=== PATIENT | male | born 1955 | race Caucasian/White ===

== ENCOUNTER 2017-01-15 14:01 | Emergency (ER) | payer MEDICAID ==
[2017-01-15 14:51] VITALS: RESP 18; TEMP 98.2; BMI 26.9
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
[2017-01-15 17:15] VITALS: BP 128/74; PULSE 85; O2SAT 100
--- NOTE | 2017-01-16 09:45 | RAD ---
PROCEDURE: Radiographs of the Left Shoulder HISTORY: Left shoulder injury and pain COMPARISON: No prior. FINDINGS: BONES: There is no acute fracture or bone destruction. Bone mineralization alignment and alignment are normal. JOINTS: The heart there is mild degenerative osteoarthrosis in the acromioclavicular joint. The glenohumeral joint is normal. SOFT TISSUES: Normal. OTHER FINDINGS: There is a calcified lobe the in the left axilla. IMPRESSION: No acute fracture or dislocation.
== END 2017-01-15 16:45 | disposition home or self-care (01) ==
LOC: ED 14:01
DX: S49.92XA Unspecified injury of left shoulder and upper arm, initial encounter (principal); Y08.89XA Assault by other specified means, initial encounter; Y92.9 Unspecified place or not applicable

== ENCOUNTER 2018-06-05 22:30 | Observation (INO) | payer MEDICAID ==
--- NOTE | 2018-06-05 23:09 | ED PDOC ---
Arrival/HPI - General Time Seen by Provider: 06/05/18 22:57 Historian: Patient - History of Present Illness Narrative History of Present Illness (Text): 06/05/18 23:08 Ondina Baldwin is a 62 year old male, whose past medical history includes hyperlipidemia, who presents to the emergency department complaining of dry cough and nasal congestion for the past few days. Patient denies any fever, chills, chest pain, shortness of breath, abdominal pain, nausea, vomiting, headache, dizziness, or any other complaints. Symptom Onset: Gradual Symptom Course: Unchanged Activities at Onset: Light Context: Home Past Medical History - Provider Review Nursing Documentation Reviewed: Yes - Cardiac Hx Cardiac Disorders: Yes - Psychiatric Hx Substance Use: No - Surgical History Other/Comment: sinus surgery - Anesthesia Hx Anesthesia: Yes Hx Anesthesia Reactions: No Hx Malignant Hyperthermia: No Family/Social History - Physician Review Nursing Documentation Reviewed: Yes Family/Social History: Unknown Family HX Smoking Status: Heavy Smoker > 10 Cigarettes Daily Hx Alcohol Use: No Hx Substance Use: No Allergies/Home Meds Allergies/Adverse Reactions: Allergies No Known Allergies Allergy (Verified 06/05/18 23:11) Home Medications: Home Meds Medication Instructions Recorded Confirmed Atorvastatin [Lipitor] 10 mg PO DIN 01/15/17 06/06/18 Review of Systems - Physician Review All systems were reviewed & negative as marked: Yes - Review of Systems Constitutional: Normal. absent: Fevers Eyes: Normal ENT: Normal, Sinus Congestion Respiratory: Cough. absent: Sputum Cardiovascular: Normal. absent: Chest Pain Gastrointestinal: Normal. absent: Abdominal Pain, Diarrhea, Nausea, Vomiting Genitourinary Male: Normal. absent: Dysuria, Frequency, Hematuria, Urinary Output Changes Musculoskeletal: Normal. absent: Back Pain, Neck Pain Skin: Normal. absent: Rash Neurological: Normal. absent: Headache, Dizziness Endocrine: Normal Hemo/Lymphatic: Normal Psychiatric: Normal Physical Exam Vital Signs Reviewed: Yes Vital Signs Temp Pulse Resp BP Pulse Ox 06/06/18 02:39 98.1 F 86 16 116/71 96 06/06/18 02:33 102.6 F H 06/06/18 01:00 98 H 20 120/70 96 06/05/18 23:24 103 F H 106 H 18 95/66 L 95 Temperature: Febrile Blood Pressure: Normal Pulse: Regular Respiratory Rate: Normal Appearance: Positive for: Well-Appearing, Non-Toxic, Comfortable Pain Distress: None Mental Status: Positive for: Alert and Oriented X 3 - Systems Exam Head: Present: Atraumatic, Normocephalic Pupils: Present: PERRL Extroacular Muscles: Present: EOMI Conjunctiva: Present: Normal Mouth: Present: Moist Mucous Membranes Neck: Present: Normal Range of Motion Respiratory/Chest: Present: Wheezes. No: Respiratory Distress, Accessory Muscle Use Cardiovascular: Present: Regular Rate and Rhythm, Normal S1, S2. No: Murmurs Abdomen: No: Tenderness, Distention, Peritoneal Signs Back: Present: Normal Inspection. No: CVA Tenderness, Midline Tenderness, Paraspinal Tenderness Upper Extremity: Present: Normal Inspection. No: Cyanosis, Edema Lower Extremity: Present: Normal Inspection. No: Edema Neurological: Present: GCS=15, CN II-XII Intact, Speech Normal Skin: Present: Warm, Dry, Normal Color. No: Rashes Psychiatric: Present: Alert, Oriented x 3, Normal Insight, Normal Concentration Medical Decision Making ED Course and Treatment: 06/05/18 23:08 Impression: 62 year old male complaining of dry cough and nasal congestion. Plan: -- Chest X-Ray -- Duoneb -- Solu-medrol -- Reassess and disposition Progress Notes: 06/05/18 23:35 Pt febrile at 103F. EKG, labs, blood cultures ordered. 06/06/18 02:00 Chest X-Ray reviewed, shows bilateral pneumonia. 06/06/18 02:33 Case discussed with medical assistant supervisor electrician substation, who is aware and agrees with plan. 06/06/18 02:[address] Talbert, house physician, who is aware and agrees with plan. Pt will go to [facility] observation for pneumonia under the hospitalist service. - Lab Interpretations Lab Results: 06/05/18 23:30 06/05/18 23:30 Lab Results 06/05/18 23:30: Sodium 136, Potassium 4.1, Chloride 102, Carbon Dioxide 21, Anion Gap 17, BUN 20, Creatinine 1.2, Est GFR ( Amer) > 60, Est GFR (Non- Af Amer) > 60, Random Glucose 110, Calcium 8.8, Total Bilirubin 1.6 H, AST 17, ALT 25, Alkaline Phosphatase 59, Total Protein 7.3, Albumin 4.1, Globulin 3.1, Albumin/Globulin Ratio 1.3 06/05/18 23:30: WBC 12.3 H, RBC 4.40, Hgb 13.1 L, Hct 37.2 L, MCV 84.5, MCH 29.8 , MCHC 35.2, RDW 13.3, Plt Count 227, MPV 9.6, Gran % 72.6 H, Lymph % (Auto) 17.6 L, Karnes % (Auto) 9.2 H, Eos % (Auto) 0.4 L, Baso % (Auto) 0.2, Gran # 8.95 H, Lymph # (Auto) 2.2, Karnes # (Auto) 1.1 H, Eos # (Auto) 0.1, Baso # (Auto) 0.03 - RAD Interpretation Radiology Orders: 06/05/18 23:11 CHEST TWO VIEWS (PA/LAT) [RAD] Stat Treasury Assistant: ED Physician - Medication Orders Current Medication Orders: Acetaminophen (Tylenol 325mg Tab) 650 mg PO Q6H PRN PRN Reason: Fever >100.4 F Albuterol/Ipratropium (Duoneb 3 Mg/0.5 Mg (3 Ml) Ud) 3 ml IH [id number] PRN PRN Reason: Shortness of Breath Arformoterol Tartrate (Brovana) 15 mcg IH [id number] JANICE Atorvastatin Calcium (Lipitor) 10 mg PO DIN JANICE Budesonide (Pulmicort Respules) 0.5 mg IH [id number] JANICE Sodium Chloride (Sodium Chloride 0.9%) 1,000 mls @ 100 mls/hr IV .Q10H JANICE Last Admin: 06/06/18 03:45 Dose: 100 mls/hr eMAR Start Stop Document 06/06/18 03:45 MV (Rec: 06/06/18 06:23 MV [id number]) Intravenous Solution Start Date 06/06/18 Start Time 03:45 Ceftriaxone Sodium (Rocephin 1 Gram Ivpb) 1 gm in 100 mls @ 100 mls/hr IVPB DAILY JANICE PRN Reason: Protocol Azithromycin (Zithromax 500mg In Ns) 500 mg in 250 mls @ 167 mls/hr IVPB DAILY JANICE PRN Reason: Protocol Pantoprazole Sodium (Protonix Ec Tab) 40 mg PO 0600 JANICE Last Admin: 06/06/18 06:22 Dose: 40 mg Tamsulosin HCl (Flomax) 0.4 mg PO DAILY JANICE Discontinued Medications Acetaminophen (Tylenol 325mg Tab) 650 mg PO STAT STA Stop: 06/06/18 01:15 Last Admin: 06/06/18 02:33 Dose: 650 mg MAR Pain/Vitals Document 06/06/18 02:33 RG (Rec: 06/06/18 02:34 [place] [facility] [id number] Vitals Temperature (97.6 F-99.6 F) 102.6 F Temperature Source Oral Albuterol/Ipratropium (Duoneb 3 Mg/0.5 Mg (3 Ml) Ud) 3 ml IH Q15M JANICE Stop: 06/05/18 23:46 Last Admin: 06/05/18 23:54 Dose: 3 ml Ceftriaxone Sodium (Rocephin 1 Gram Ivpb) 1 gm in 100 mls @ 200 mls/hr IVPB STAT STA PRN Reason: Protocol Stop: 06/06/18 02:43 Last Admin: 06/06/18 02:33 Dose: 200 mls/hr eMAR Start Stop Document 06/06/18 02:33 RG (Rec: 06/06/18 02:33 RG [facility] [id number] Intravenous Solution Start Date 06/06/18 Start Time 02:33 Azithromycin (Zithromax 500mg In Ns) 500 mg in 250 mls @ 167 mls/hr IVPB STAT STA PRN Reason: Protocol Stop: 06/06/18 03:45 Last Admin: 06/06/18 03:00 Dose: 167 mls/hr eMAR Start Stop Document 06/06/18 03:00 RG (Rec: 06/06/18 03:13 RG [facility] [id number] Intravenous Solution Start Date 06/06/18 Start Time 03:00 Sodium Chloride (Sodium Chloride 0.9%) 500 mls @ 999 mls/hr IV .Q31M STA Stop: 06/06/18 03:53 Last Admin: 06/06/18 04:14 Dose: 999 mls/hr eMAR Start Stop Document 06/06/18 04:14 MV (Rec: 06/06/18 04:15 MV [facility] [id number] Intravenous Solution Start Date 06/06/18 Start Time 04:14 End Date 06/06/18 End time 04:44 Total Infusion Time 30 Methylprednisolone (Solu-Medrol) 125 mg IVP ONCE ONE Stop: 06/05/18 23:12 Last Admin: 06/05/18 23:34 Dose: 125 mg IVP Administration Document 06/05/18 23:34 CLARITZA (Rec: 06/05/18 23:41 [id number]) Charges for Administration # of IVP Administrations 1 - Scribe Statement The provider has reviewed the documentation as recorded by the Tristan Parrish Provider Scribe Attestation: All medical record entries made by the Tristan were at my direction and personally dictated by me. I have reviewed the chart and agree that the record accurately reflects my personal performance of the history, physical exam, medical decision making, and the department course for this patient. I have also personally directed, reviewed, and agree with the discharge instructions and disposition. Disposition/Present on Arrival - Present on Arrival Any Indicators Present on Arrival: No History of DVT/PE: No History of Uncontrolled Diabetes: No Urinary Catheter: No History Surgical Site Infection Following: None - Disposition Have Diagnosis and Disposition been Completed?: Yes Diagnosis: Pneumonia, COPD (chronic obstructive pulmonary disease) Disposition: HOSPITALIZED Disposition Time: 02:30 Condition: FAIR
[2018-06-05 23:11] VITALS: BMI 25.0
[2018-06-05] MEDS: Albuterol-Ipratrop 3 mg / 0.5 (3 ml) UD IH SCH ×3 (23:18→23:54)
[2018-06-06 00:02] LABS: BASO # 0.03 K/mm3 (0.0-2.0); BASO % 0.2 % (0.0-3.0); EOS # 0.1 (0.0-0.7); EOS % 0.4 % (1.5-5.0); GRAN # 8.95 (1.4-6.5); GRAN % 72.6 % (50.0-68.0); HEMOGLOBIN 13.1 g/dL (14.0-18.0); LYMPH # 2.2 (1.2-3.4); LYMPH % 17.6 % (22.0-35.0); MEAN CELL VOLUME 84.5 fl (80.0-105.0); MEAN CORPUSCULAR HEMOGLOBIN 29.8 pg (25.0-35.0); MEAN CORPUSCULAR HGB CONC 35.2 g/dl (31.0-37.0); MEAN PLATELET VOLUME 9.6 fl (7.0-11.0); MONO # 1.1 (0.1-0.6); MONO % 9.2 % (1.0-6.0); RBC 4.4 10^6/uL (3.5-6.1); RED CELL DISTRIBUTION WIDTH 13.3 % (11.5-14.5); WHITE BLOOD COUNT 12.3 10^3/ul (4.5-11.0)
[2018-06-06 00:12] LABS: ALB/GLOB RATIO 1.3 (1.1-1.8); ALBUMIN 4.1 g/dL (3.0-4.8); ALT/SGPT 25 U/L (7-56); AST/SGOT 17 U/L (17-59); BLOOD UREA NITROGEN 20 mg/dL (7-21); CALCIUM 8.8 mg/dL (8.4-10.5); GFR NON-AFRICAN AMERICAN > 60
[2018-06-06] MEDS ORDERED: cefTRIAXone 1 gm 1 GM/100 ML BAG IVPB STA (02:14)
[2018-06-06] MEDS ORDERED: Azithromycin 500MG/NS 250ml 500 MG/250 ML BAG IVPB STA (02:16)
--- NOTE | 2018-06-06 03:06 | CP.PCM.HP ---
<Aisha Montgomery - Last Filed: 06/06/18 03:53> History of Present Illness - History of Present Illness History of Present Illness: PGY-1 H&P for Dr. Talbert CC: weak, no appetite, cough, difficulty breathing, sweating HPI: Patient is a 62 yo male with PMH of BPH, asthma, and CAD who presents to the hospital for evaluation of generalized weakness, fever, cough, diaphoresis, and shortness of breath. Patient reports the symptoms began this Sunday but progressed in severity to the point where we had difficulty catching his breath and excessive sweating. He has been having a cough but states it is non productive. He says he was taking 3-4 Ibuprofens daily since Sunday for his symptoms but was not offered much relief. The breathing became so difficult yesterday that patient felt like he could not catch his breath. During work today, symptoms continued but he waited until he was done with work to come to the hospital. He reports that he had 3 episodes of these symptoms earlier this year but went to his doctor who prescribed antibiotics, levofloxacin. Patient reports no sick contacts at home. 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 Justino Hare Review of Systems: Pertinent Positives: fevers, chills, generalized weakness, sob, diaphoresis, lightheadedness, non productive cough, headache, decreased appetite Pertinent Negatives: CP, N/V, constipation or diarrhea, dizziness, palpitations , Present on Admission - Present on Admission Any Indicators Present on Admission: No Review of Systems - Constitutional Constitutional: Chills, Excessive Sweating, Fever, Headache, Weakness. absent: Increased Appetite - EENT Eyes: absent: Blind Spots, Blurred Vision, Change in Vision Ears: absent: Dizziness Nose/Mouth/Throat: absent: Sore Throat - Cardiovascular Cardiovascular: Diaphoresis, Dyspnea, Lightheadedness. absent: Chest Pain, Chest Pain at Rest, Palpitations - Respiratory Respiratory: Cough, Pain with Coughing. absent: Dyspnea, Wheezing, Excessive Mucous Production - Gastrointestinal Gastrointestinal: absent: Abdominal Pain, Constipation, Diarrhea, Nausea, Vomiting - Genitourinary Genitourinary: Difficulty Urinating. absent: Change in Urinary Stream, Dysuria - Musculoskeletal Musculoskeletal: absent: Back Pain, Numbness, Tingling - Neurological Neurological: Headaches, Weakness. absent: Dizziness, Numbness, Tingling Past Patient History - Infectious Disease Hx of Infectious Diseases: None - Past Social History Smoking Status: Heavy Smoker > 10 Cigarettes Daily - CARDIAC Hx Cardiac Disorders: Yes - PSYCHIATRIC Hx Substance Use: No - SURGICAL HISTORY Other/Comment: sinus surgery - ANESTHESIA Hx Anesthesia: Yes Hx Anesthesia Reactions: No Hx Malignant Hyperthermia: No Meds Allergies/Adverse Reactions: Allergies Allergy/AdvReac Type Severity Reaction Status Date / Time No Known Allergies Allergy Verified 06/05/18 23:11 Physical Exam - Constitutional Appears: Non-toxic, No Acute Distress - Head Exam Head Exam: NORMAL INSPECTION, NORMOCEPHALIC - Eye Exam Eye Exam: EOMI, Normal appearance. absent: Nystagmus, Scleral icterus - ENT Exam ENT Exam: Mucous Membranes Dry - Respiratory Exam Respiratory Exam: Rhonchi, Wheezes, NORMAL BREATHING PATTERN. absent: Accessory Muscle Use, Respiratory Distress - Cardiovascular Exam Cardiovascular Exam: REGULAR RHYTHM, +S1, +S2 - GI/Abdominal Exam GI & Abdominal Exam: Normal Bowel Sounds, Soft. absent: Distended, Firm, Guarding, Tenderness - Extremities Exam Extremities exam: Positive for: normal inspection. Negative for: calf tenderness, pedal edema - Back Exam Back exam: NORMAL INSPECTION. absent: CVA tenderness (L), CVA tenderness (R) - Neurological Exam Neurological exam: Alert, Oriented x3 - Psychiatric Exam Psychiatric exam: Normal Affect, Normal Mood - Skin Skin Exam: Diaphoretic, Intact, Normal Color Results - Vital Signs Recent Vital Signs: Last Vital Signs Temp 98.1 F 06/06/18 02:39 Pulse 86 06/06/18 02:39 Resp 16 06/06/18 02:39 BP 116/71 06/06/18 02:39 Pulse Ox 96 06/06/18 02:39 - Labs Result Diagrams: 06/05/18 23:30 06/05/18 23:30 Assessment & Plan - Assessment and Plan (Free Text) Assessment: Sepsis Upon Admission: VS- T 103; HR 106; BP 95/66; WBC 12.3 Likely secondary to pneumonia NS bolus 500cc IVF @ 100/hr Ceftriaxone IVPB 1gm Azithromycin IVPB 500mg Tylenol 650mg po Q6 prn Blood cultures pending Sputum Cultures pending EKG in AM Repeat CBC/CMP in AM Hx of Asthma Duonebs q6 prn Advair Diskus 250/50 bid azar Hx of BPH Flomax 0.4mg po daily U/A pending Hx of CAD Lipitor 10mg po daily PPX: GI PPX: Protonix 40mg po daily DVT PPX: Not indicated at this time <Joel Talbert - Last Filed: 06/06/18 05:12> Results - Vital Signs Recent Vital Signs: Last Vital Signs Temp 98.0 F 06/06/18 03:38 Pulse 76 06/06/18 03:38 Resp 18 06/06/18 03:38 BP 113/72 06/06/18 03:38 Pulse Ox 96 06/06/18 02:39 - Labs Result Diagrams: 06/05/18 23:30 06/05/18 23:30 Attending/Attestation - Attestation I have personally seen and examined this patient.: Yes I have fully participated in the care of the patient.: Yes I have reviewed all pertinent clinical information: Yes Notes (Text): Pt seen and examined independently. I agree with the residents note above. Sepsis secondary to CAP CAD BPH Send tom culture, start pt on Zithromax and rocephin Statins Flomax 06/06/18 05:06 06/06/18 05:10
[2018-06-06] MEDS ORDERED: Sodium Chloride 0.9% 500 ML IV STA (03:23)
[2018-06-06] MEDS: Sodium Chloride 0.9% 1,000 ML IV SCH ×3 (03:45→23:30)
[2018-06-06] MEDS ORDERED: Albuterol-Ipratrop 3 mg / 0.5 (3 ml) UD IH PRN ×2 (03:48→10:18)
[2018-06-06] MEDS: Pantoprazole 40 mg EC Tab PO SCH (06:22)
[2018-06-06 06:46] LABS: BASO # 0.01 K/mm3 (0.0-2.0); BASO % 0.1 % (0.0-3.0); GRAN # 8.95 (1.4-6.5); GRAN % 87.1 % (50.0-68.0); HEMOGLOBIN 12.5 g/dL (14.0-18.0); LYMPH # 1.1 (1.2-3.4); MEAN CELL VOLUME 84.6 fl (80.0-105.0); MEAN CORPUSCULAR HEMOGLOBIN 28.8 pg (25.0-35.0); MEAN CORPUSCULAR HGB CONC 34.1 g/dl (31.0-37.0); MEAN PLATELET VOLUME 9.5 fl (7.0-11.0); MONO # 0.2 (0.1-0.6); MONO % 1.8 % (1.0-6.0); RBC 4.34 10^6/uL (3.5-6.1); RED CELL DISTRIBUTION WIDTH 13.4 % (11.5-14.5); WHITE BLOOD COUNT 10.3 10^3/ul (4.5-11.0)
[2018-06-06 07:32] LABS: ALB/GLOB RATIO 1.3 (1.1-1.8); ALBUMIN 3.8 g/dL (3.0-4.8); ALT/SGPT 25 U/L (7-56); AST/SGOT 16 U/L (17-59); BLOOD UREA NITROGEN 19 mg/dL (7-21); CALCIUM 8.4 mg/dL (8.4-10.5); GFR NON-AFRICAN AMERICAN > 60
[2018-06-06 07:34] LABS: URINE BILIRUBIN NEGATIVE (NEGATIVE); URINE BLOOD SMALL (NEGATIVE); URINE GLUCOSE (UA) NEGATIVE (NEGATIVE); URINE LEUKOCYTE ESTERASE NEGATIVE Leu/uL (NEGATIVE); URINE PROTEIN NEGATIVE mg/dL (<30 mg/dL)
[2018-06-06 07:35] LABS: URINE APPEARANCE CLEAR (CLEAR); URINE COLOR YELLOW (YELLOW)
[2018-06-06 07:55] LABS: URINE BACTERIA MOD (NEG); URINE WBC 0 - 2 /hpf (0-6)
[2018-06-06] MEDS ORDERED: Budesonide 0.5 mg/2 ml Inhal Susp UD IH SCH (08:00)
[2018-06-06] MEDS ORDERED: Arformoterol 15 mcg/2 ml Inh Sol IH SCH (08:00)
--- NOTE | 2018-06-06 08:50 | RAD ---
Date of service: 06/06/2018 HISTORY: sob COMPARISON: No prior. TECHNIQUE: Chest PA and lateral FINDINGS: LUNGS: No active pulmonary disease. PLEURA: No significant pleural effusion identified. No pneumothorax apparent. CARDIOVASCULAR: Normal. OSSEOUS STRUCTURES: No significant abnormalities. VISUALIZED UPPER ABDOMEN: Normal. OTHER FINDINGS: Incidental left axillary calcification reiterated. IMPRESSION: No interval acute cardiopulmonary disease appreciated.
--- NOTE | 2018-06-06 09:59 | CARD ---
APPROVED REPORT Date of service: 06/05/2018 EKG Measurement Heart [id number] <Conclusion> Sinus tachycardia NSSTW changes
[2018-06-06] MEDS: Enoxaparin 40 mg Syringe SC SCH (11:07)
[2018-06-06] MEDS: MethylPREDNISolone 40 mg Vial IVP SCH ×2 (11:07→21:58)
[2018-06-06] MEDS ORDERED: Promethazine 6.25 MG/5 ML CUP PO PRN (11:28)
[2018-06-06] MEDS: Albuterol-Ipratrop 3 mg / 0.5 (3 ml) UD IH SCH ×4 (11:45→23:11)
[2018-06-06] MEDS ORDERED: Iohexol 350 MG/100 ML VIAL ONE (12:17)
[2018-06-06] MEDS: guaiFENesin 600 mg ER Tab PO SCH ×2 (13:07→17:49)
--- NOTE | 2018-06-06 14:03 | CT ---
Date of service: 06/06/2018 PROCEDURE: CT Chest with contrast HISTORY: r/o pna COMPARISON: None available. TECHNIQUE: Contiguous axial images were obtained through the chest with intravenous contrast enhancement. Sagittal and coronal reconstructions were performed. IV contrast: 100 cc of Omni 350 Radiation dose (DLP): 790 mGy-cm. This CT exam was performed using one or more of the following dose reduction techniques: Automated exposure control, adjustment of the mA and/or kV according to patient size, and/or use of iterative reconstruction technique. FINDINGS: LUNGS: Ground-glass interstitial infiltrates are seen in the lingular segment of the left lung and a small area of the right upper lobe. Findings are consistent with an interstitial pneumonia. MEDIASTINUM: Unremarkable thoracic aorta. No aneurysm or dissection. Normal sized heart. Main pulmonary artery unremarkable. No vascular congestion. No lymphadenopathy. PLEURA: No pleural fluid. No pneumothorax. BONES: No fracture. No destructive lesion. UPPER ABDOMEN: Grossly unremarkable. OTHER FINDINGS: None. IMPRESSION: Ground-glass interstitial infiltrates are seen in the lingular segment of the left lung and a small area of the right upper lobe. Findings are consistent with an interstitial pneumonia.
[2018-06-06 17:32] VITALS: RESP 18; O2SAT 96
[2018-06-06] MEDS: Azithromycin 500MG/NS 250ml 500 MG/250 ML BAG IVPB SCH (21:57)
[2018-06-06] MEDS: cefTRIAXone 1 gm 1 GM/100 ML BAG IVPB SCH (21:57)
[2018-06-06] MEDS ORDERED: guaiFENesin 100 mg/5 ml Syrup UD PO ONE (23:51)
--- NOTE | 2018-06-07 00:26 | CP.PCM.CON ---
History of Present Illness - History of Present Illness History of Present Illness: Infectious Disease Consultation: June 06, 2018 62 yo male with cough, SOB, weakness, and poor appetite. Symptoms started on Sunday. Patient continued to slowly worsen. He was taking 3-4 Ibuprofen pills a day. PMHx includes Asthma, CAD, and BPH. PMHx: Asthma, CAD, BPH. PSHx: Denies Allergies: NKDA Social Hx: 15 pack year history of tobacco use, No EtOH or illicit drug use. 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 Active Medications Acetaminophen (Tylenol 325mg Tab) 650 mg PO Q6H PRN PRN Reason: Fever >100.4 F Albuterol/Ipratropium (Duoneb 3 Mg/0.5 Mg (3 Ml) Ud) 3 ml IH [id number] [facility] Last Admin: 06/06/18 23:11 Dose: 3 ml Albuterol/Ipratropium (Duoneb 3 Mg/0.5 Mg (3 Ml) Ud) 3 ml IH Q2H PRN PRN Reason: Shortness of Breath Arformoterol Tartrate (Brovana) 15 mcg IH [id number] [facility] Atorvastatin Calcium (Lipitor) 10 mg PO DIN [facility] Last Admin: 06/06/18 17:49 Dose: 10 mg Budesonide (Pulmicort Respules) 0.5 mg IH [id number] [facility] Enoxaparin Sodium (Lovenox) 40 mg SC DAILY [facility] PRN Reason: Protocol Last Admin: 06/06/18 11:07 Dose: 40 mg Guaifenesin (Mucinex La) 600 mg PO BID [facility] Last Admin: 06/06/18 17:49 Dose: 600 mg Sodium Chloride (Sodium Chloride 0.9%) 1,000 mls @ 100 mls/hr IV .Q10H [facility] Last Admin: 06/06/18 14:08 Dose: 100 mls/hr Ceftriaxone Sodium (Rocephin 1 Gram Ivpb) 1 gm in 100 mls @ 100 mls/hr IVPB DAILY [facility] PRN Reason: Protocol Last Admin: 06/06/18 21:57 Dose: 100 mls/hr Azithromycin (Zithromax 500mg In Ns) 500 mg in 250 mls @ 167 mls/hr IVPB DAILY [facility] PRN Reason: Protocol Last Admin: 06/06/18 21:57 Dose: 167 mls/hr Methylprednisolone (Solu-Medrol) 40 mg IVP Q12 [facility] Last Admin: 06/06/18 21:58 Dose: 40 mg Nicotine (Nicoderm Cq) 1 patch TD DAILY [facility] Last Admin: 06/06/18 11:46 Dose: 1 patch Pantoprazole Sodium (Protonix Ec Tab) 40 mg PO 0600 [facility] Last Admin: 06/06/18 06:22 Dose: 40 mg Tamsulosin HCl (Flomax) 0.4 mg PO DAILY [facility] Last Admin: 06/06/18 11:08 Dose: 0.4 mg Family Hx: none given ROS: Cough, SOB, weakness, and poor appetite. No fevers, chills, nausea, vomiting, chest pain, abdominal pain, melena, hematuria, hematemesis, hematochezia, depression, anxiety. Past Patient History - Infectious Disease Hx of Infectious Diseases: None - Past Social History Smoking Status: Heavy Smoker > 10 Cigarettes Daily - CARDIAC Hx Cardiac Disorders: Yes - PULMONARY Hx Respiratory Disorders: Yes Hx Asthma: Yes Hx Pneumonia: Yes - NEUROLOGICAL Hx Neurological Disorder: No - HEENT Hx HEENT Problems: No - RENAL Hx Chronic Kidney Disease: No - ENDOCRINE/METABOLIC Hx Endocrine Disorders: No - HEMATOLOGICAL/ONCOLOGICAL Hx Blood Disorders: No - INTEGUMENTARY Hx Dermatological Problems: No - MUSCULOSKELETAL/RHEUMATOLOGICAL Hx Musculoskeletal Disorders: No Hx Falls: No - GASTROINTESTINAL Hx Gastrointestinal Disorders: No - GENITOURINARY/GYNECOLOGICAL Hx Prostate Problems: Yes (BPH) - PSYCHIATRIC Hx Substance Use: No - SURGICAL HISTORY Other/Comment: sinus surgery - ANESTHESIA Hx Anesthesia: Yes Hx Anesthesia Reactions: No Hx Malignant Hyperthermia: No Meds Allergies/Adverse Reactions: Allergies Allergy/AdvReac Type Severity Reaction Status Date / Time No Known Allergies Allergy Verified 06/05/18 23:11 - Medications Medications: Current Medications Acetaminophen (Tylenol 325mg Tab) 650 mg PO Q6H PRN PRN Reason: Fever >100.4 F Albuterol/Ipratropium (Duoneb 3 Mg/0.5 Mg (3 Ml) Ud) 3 ml IH [id number] [facility] Last Admin: 06/06/18 23:11 Dose: 3 ml Albuterol/Ipratropium (Duoneb 3 Mg/0.5 Mg (3 Ml) Ud) 3 ml IH Q2H PRN PRN Reason: Shortness of Breath Arformoterol Tartrate (Brovana) 15 mcg IH [id number] [facility] Atorvastatin Calcium (Lipitor) 10 mg PO DIN [facility] Last Admin: 06/06/18 17:49 Dose: 10 mg Budesonide (Pulmicort Respules) 0.5 mg IH [id number] [facility] Enoxaparin Sodium (Lovenox) 40 mg SC DAILY [facility] PRN Reason: Protocol Last Admin: 06/06/18 11:07 Dose: 40 mg Guaifenesin (Mucinex La) 600 mg PO BID [facility] Last Admin: 06/06/18 17:49 Dose: 600 mg Sodium Chloride (Sodium Chloride 0.9%) 1,000 mls @ 100 mls/hr IV .Q10H [facility] Last Admin: 06/06/18 14:08 Dose: 100 mls/hr Ceftriaxone Sodium (Rocephin 1 Gram Ivpb) 1 gm in 100 mls @ 100 mls/hr IVPB DAILY [facility] PRN Reason: Protocol Last Admin: 06/06/18 21:57 Dose: 100 mls/hr Azithromycin (Zithromax 500mg In Ns) 500 mg in 250 mls @ 167 mls/hr IVPB DAILY [facility] PRN Reason: Protocol Last Admin: 06/06/18 21:57 Dose: 167 mls/hr Methylprednisolone (Solu-Medrol) 40 mg IVP Q12 [facility] Last Admin: 06/06/18 21:58 Dose: 40 mg Nicotine (Nicoderm Cq) 1 patch TD DAILY [facility] Last Admin: 06/06/18 11:46 Dose: 1 patch Pantoprazole Sodium (Protonix Ec Tab) 40 mg PO 0600 [facility] Last Admin: 06/06/18 06:22 Dose: 40 mg Tamsulosin HCl (Flomax) 0.4 mg PO DAILY [facility] Last Admin: 06/06/18 11:08 Dose: 0.4 mg Physical Exam - Constitutional Appears: Non-toxic, No Acute Distress - Head Exam Head Exam: NORMAL INSPECTION, NORMOCEPHALIC - Eye Exam Eye Exam: EOMI, PERRL Pupil Exam: NORMAL ACCOMODATION, PERRL - ENT Exam ENT Exam: Mucous Membranes Moist, Normal External Ear Exam, TM's Normal Bilaterally - Neck Exam Neck exam: Positive for: Full Rom, Normal Inspection - Respiratory Exam Respiratory Exam: Decreased Breath Sounds, Rhonchi, Wheezes, NORMAL BREATHING PATTERN. absent: Rales - Cardiovascular Exam Cardiovascular Exam: REGULAR RHYTHM, RRR, +S1, +S2 - GI/Abdominal Exam GI & Abdominal Exam: Normal Bowel Sounds, Soft. absent: Distended, Tenderness - Extremities Exam Extremities exam: Positive for: normal inspection. Negative for: joint swelling , pedal edema - Back Exam Back exam: NORMAL INSPECTION - Neurological Exam Neurological exam: Alert, CN II-XII Intact, Oriented x3 - Psychiatric Exam Psychiatric exam: Normal Affect, Normal Mood - Skin Skin Exam: Diaphoretic, Intact, Normal Color Results - Vital Signs Recent Vital Signs: Last Vital Signs Temp 97.2 F L 06/06/18 17:31 Pulse 97 H 06/06/18 17:31 Resp 18 06/06/18 17:31 BP 106/63 06/06/18 17:31 Pulse Ox 96 06/06/18 17:31 - Labs Result Diagrams: 06/06/18 06:00 06/06/18 06:00 Labs: Laboratory Results - last 24 hr 06/06/18 06/06/18 06/06/18 06:00 06:00 06:00 WBC 10.3 RBC 4.34 Hgb 12.5 L Hct 36.7 L MCV 84.6 MCH 28.8 MCHC 34.1 RDW 13.4 Plt Count 212 MPV 9.5 Gran % 87.1 H Lymph % (Auto) 11.0 L [place] % (Auto) 1.8 Eos % (Auto) 0.0 L Baso % (Auto) 0.1 Gran # 8.95 H Lymph # (Auto) 1.1 L [place] # (Auto) 0.2 Eos # (Auto) 0.0 Baso # (Auto) 0.01 Sodium 142 Potassium 4.0 Chloride 109 H Carbon Dioxide 19 L Anion Gap 18 BUN 19 Creatinine 0.9 Est GFR ( Amer) > 60 Est GFR (Non-Af Amer) > 60 Random Glucose 178 H Calcium 8.4 Total Bilirubin 1.0 AST 16 L ALT 25 Alkaline Phosphatase 57 Troponin I < 0.01 Total Protein 6.6 Albumin 3.8 Globulin 2.8 Albumin/Globulin Ratio 1.3 Procalcitonin Urine Color Urine Appearance Urine pH Ur Specific [place] Urine Protein Urine Glucose (UA) Urine Ketones Urine Blood Urine Nitrate Urine Bilirubin Urine Urobilinogen Ur Leukocyte Esterase Urine RBC Urine WBC Ur Epithelial Cells Urine Bacteria 0806/06/18 06/06/18 06:30 13:30 16:16 WBC RBC Hgb Hct MCV MCH MCHC RDW Plt Count MPV Gran % Lymph % (Auto) [place] % (Auto) Eos % (Auto) Baso % (Auto) Gran # Lymph # (Auto) [place] # (Auto) Eos # (Auto) Baso # (Auto) Sodium Potassium Chloride Carbon Dioxide Anion Gap BUN Creatinine Est GFR ( Amer) Est GFR (Non-Af Amer) Random Glucose Calcium Total Bilirubin AST ALT Alkaline Phosphatase Troponin I < 0.01 Total Protein Albumin Globulin Albumin/Globulin Ratio Procalcitonin 0.21 Urine Color Yellow Urine Appearance Clear Urine pH 5.0 Ur Specific [place] 1.015 Urine Protein Negative Urine Glucose (UA) Negative Urine Ketones Negative Urine Blood Small H Urine Nitrate Negative Urine Bilirubin Negative Urine Urobilinogen 1.0 H Ur Leukocyte Esterase Negative Urine RBC 2 - 5 Urine WBC 0 - 2 Ur Epithelial Cells None Urine Bacteria Mod 06/06/18 22:50 WBC RBC Hgb Hct MCV MCH MCHC RDW Plt Count MPV Gran % Lymph % (Auto) [place] % (Auto) Eos % (Auto) Baso % (Auto) Gran # Lymph # (Auto) [place] # (Auto) Eos # (Auto) Baso # (Auto) Sodium Potassium Chloride Carbon Dioxide Anion Gap BUN Creatinine Est GFR ( Amer) Est GFR (Non-Af Amer) Random Glucose Calcium Total Bilirubin AST ALT Alkaline Phosphatase Troponin I < 0.01 Total Protein Albumin Globulin Albumin/Globulin Ratio Procalcitonin Urine Color Urine Appearance Urine pH Ur Specific [place] Urine Protein Urine Glucose (UA) Urine Ketones Urine Blood Urine Nitrate Urine Bilirubin Urine Urobilinogen Ur Leukocyte Esterase Urine RBC Urine WBC Ur Epithelial Cells Urine Bacteria Assessment & Plan - Assessment and Plan (Free Text) Assessment: 62 yo male with signs of interstitial pneumonia with cough, SOB, and general weakness. Started on Azithromycin and Rocephin. CT Chest noted. Sepsis. If patient worsens, may have to add IV Vancomycin. Supportive care. Thank you for allowing me to participate in the care of the patient, we will follow with you.
[2018-06-07] MEDS: Albuterol-Ipratrop 3 mg / 0.5 (3 ml) UD IH SCH ×2 (03:53→07:52)
[2018-06-07] MEDS: Pantoprazole 40 mg EC Tab PO SCH (06:43)
[2018-06-07] MEDS: cefTRIAXone 1 gm 1 GM/100 ML BAG IVPB SCH (08:33)
[2018-06-07 08:50] VITALS: BP 119/77; PULSE 86; TEMP 97.7
[2018-06-07] MEDS: guaiFENesin 600 mg ER Tab PO SCH (09:32)
[2018-06-07] MEDS: MethylPREDNISolone 40 mg Vial IVP SCH (09:32)
[2018-06-07] MEDS: Enoxaparin 40 mg Syringe SC SCH (09:33)
[2018-06-07] MEDS: Azithromycin 500MG/NS 250ml 500 MG/250 ML BAG IVPB SCH (09:34)
[2018-06-07 10:05] LABS: GRAN # 13.83 (1.4-6.5); GRAN % 88.1 % (50.0-68.0); HEMOGLOBIN 11.8 g/dL (14.0-18.0); LYMPH # 1.1 (1.2-3.4); LYMPH % 7.1 % (22.0-35.0); MEAN CELL VOLUME 84.3 fl (80.0-105.0); MEAN CORPUSCULAR HEMOGLOBIN 28.9 pg (25.0-35.0); MEAN CORPUSCULAR HGB CONC 34.3 g/dl (31.0-37.0); MEAN PLATELET VOLUME 9.7 fl (7.0-11.0); MONO # 0.8 (0.1-0.6); MONO % 4.8 % (1.0-6.0); RBC 4.08 10^6/uL (3.5-6.1); RED CELL DISTRIBUTION WIDTH 13.4 % (11.5-14.5); WHITE BLOOD COUNT 15.7 10^3/ul (4.5-11.0)
[2018-06-07 10:13] LABS: ALB/GLOB RATIO 1.2 (1.1-1.8); ALBUMIN 3.4 g/dL (3.0-4.8); ALT/SGPT 20 U/L (7-56); AST/SGOT 18 U/L (17-59); BLOOD UREA NITROGEN 17 mg/dL (7-21); CALCIUM 8.8 mg/dL (8.4-10.5); GFR NON-AFRICAN AMERICAN > 60
[2018-06-07] MEDS ORDERED: Potassium Chloride 20 mEq ER Tab PO ONE (11:07)
--- NOTE | 2018-06-07 13:30 | CP.PCM.DIS ---
<Yoan Cool - Last Filed: 06/07/18 17:53> Provider - Provider Date of Admission: 06/06/18 02:16 Attending physician: Radha Crespo DO Primary care physician: Justino Burrell MD Consults: ELANA Contreras Time Spent in preparation of Discharge (in minutes): 60 Hospital Course - Lab Results Lab Results: Micro Results 06/06/18 06:00 Blood Blood Culture - Preliminary NO GROWTH AFTER 24 HOURS Most Recent Lab Values WBC 15.7 10^3/ul (4.5-11.0) H D 06/07/18 10:00 RBC 4.08 10^6/uL (3.5-6.1) 06/07/18 10:00 Hgb 11.8 g/dL (14.0-18.0) L 06/07/18 10:00 Hct 34.4 % (42.0-52.0) L 06/07/18 10:00 MCV 84.3 fl (80.0-105.0) 06/07/18 10:00 MCH 28.9 pg (25.0-35.0) 06/07/18 10:00 MCHC 34.3 g/dl (31.0-37.0) 06/07/18 10:00 RDW 13.4 % (11.5-14.5) 06/07/18 10:00 Plt Count 250 10^3/uL (120.0-450.0) 06/07/18 10:00 MPV 9.7 fl (7.0-11.0) 06/07/18 10:00 Gran % 88.1 % (50.0-68.0) H 06/07/18 10:00 Lymph % (Auto) 7.1 % (22.0-35.0) L 06/07/18 10:00 [place] % (Auto) 4.8 % (1.0-6.0) 06/07/18 10:00 Eos % (Auto) 0.0 % (1.5-5.0) L 06/07/18 10:00 Baso % (Auto) 0.0 % (0.0-3.0) 06/07/18 10:00 Gran # 13.83 (1.4-6.5) H 06/07/18 10:00 Lymph # (Auto) 1.1 (1.2-3.4) L 06/07/18 10:00 [place] # (Auto) 0.8 (0.1-0.6) H 06/07/18 10:00 Eos # (Auto) 0.0 (0.0-0.7) 06/07/18 10:00 Baso # (Auto) 0.00 K/mm3 (0.0-2.0) 06/07/18 10:00 Sodium 145 mmol/L (132-148) 06/07/18 10:00 Potassium 3.5 mmol/L (3.6-5.0) L 06/07/18 10:00 Chloride 112 mmol/L (98-107) H 06/07/18 10:00 Carbon Dioxide 17 mmol/L (21-33) L 06/07/18 10:00 Anion Gap 19 (10-20) 06/07/18 10:00 BUN 17 mg/dL (7-21) 06/07/18 10:00 Creatinine 0.7 mg/dl (0.8-1.5) L 06/07/18 10:00 Est GFR ( Amer) > 60 06/07/18 10:00 Est GFR (Non-Af Amer) > 60 06/07/18 10:00 Random Glucose 185 mg/dL (70-110) H 06/07/18 10:00 Calcium 8.8 mg/dL (8.4-10.5) 06/07/18 10:00 Phosphorus 3.1 mg/dL (2.5-4.5) 06/07/18 10:00 Magnesium 2.3 mg/dL (1.7-2.2) H 06/07/18 10:00 Total Bilirubin 0.4 mg/dL (0.2-1.3) 06/07/18 10:00 AST 18 U/L (17-59) 06/07/18 10:00 ALT 20 U/L (7-56) 06/07/18 10:00 Alkaline Phosphatase 49 U/L (38-126) 06/07/18 10:00 Troponin I < 0.01 ng/mL 06/06/18 22:50 Total Protein 6.4 g/dL (5.8-8.3) 06/07/18 10:00 Albumin 3.4 g/dL (3.0-4.8) 06/07/18 10:00 Globulin 3.0 gm/dL 06/07/18 10:00 Albumin/Globulin Ratio 1.2 (1.1-1.8) 06/07/18 10:00 Procalcitonin 0.21 NG/ML (0.19-0.49) 06/06/18 13:30 Urine Color Yellow (YELLOW) 06/06/18 06:30 Urine Appearance Clear (CLEAR) 06/06/18 06:30 Urine pH 5.0 (4.7-8.0) 06/06/18 06:30 Ur Specific [place] 1.015 (1.005-1.035) 06/06/18 06:30 Urine Protein Negative mg/dL (<30 mg/dL) 06/06/18 06:30 Urine Glucose (UA) Negative mg/dL (NEGATIVE) 06/06/18 06:30 Urine Ketones Negative mg/dL (NEGATIVE) 06/06/18 06:30 Urine Blood Small (NEGATIVE) H 06/06/18 06:30 Urine Nitrate Negative (NEGATIVE) 06/06/18 06:30 Urine Bilirubin Negative (NEGATIVE) 06/06/18 06:30 Urine Urobilinogen 1.0 E.U./dL (<1 E.U./dL) H 06/06/18 06:30 Ur Leukocyte Esterase Negative [place]/uL (NEGATIVE) 06/06/18 06:30 Urine RBC 2 - 5 /hpf (0-2) 06/06/18 06:30 Urine WBC 0 - 2 /hpf (0-6) 06/06/18 06:30 Ur Epithelial Cells None /hpf (0-5) 06/06/18 06:30 Urine Bacteria Mod (NEG) 06/06/18 06:30 - Hospital Course Hospital Course: 62M with a past medical history of Asthma, CAD, BPH, Tobacco abuse, and GERD, presented to [facility] [place] on 06/05/18 with shortness of breath, fevers, diaphoresis, and cough. In the ED, he was started on IV antibiotics, given breathing treatments, and given IV fluids. Chest x-ray did not show any acute disease process. Due to patient's symptoms, CT of the chest was done showing interstitial pneumonia. He was admitted for community acquired pneumonia. He continued to receive IV antibiotics in addition to IV steroids and mucinex for the cough. Infectious Disease was consulted and agreed with the treatment plan pending blood/sputum cultures and antibiotic sensitivities. Patient's symptoms improved over the course of his hospital stay. Fevers had resolved. He was tolerating a diet. He was persistent on leaving the hospital because he felt his symptoms had resolved. We discussed the risks of leaving against medical advice and patient verbalized understanding of these risks. Patient left against medical advice on 06/07/18. Prior to discharge, he was provided with prescriptions for Azithromycin, Augmentin, Steroid taper, Mucinex, and Bacid. Above is a brief summary of patient's hospital course. For a detailed encounter please refer to medical records. - Date & Time of H&P Date of H&P: 06/06/18 Time of H&P: 03:05 Discharge Exam - Head Exam Head Exam: NORMAL INSPECTION, NORMOCEPHALIC - Eye Exam Eye Exam: EOMI Pupil Exam: PERRL - ENT Exam ENT Exam: Mucous Membranes Moist - Respiratory Exam Respiratory Exam: Clear to PA & Lateral, UNREMARKABLE. absent: Wheezes - Cardiovascular Exam Cardiovascular Exam: REGULAR RHYTHM, +S1, +S2. absent: Systolic Murmur - GI/Abdominal Exam GI & Abdominal Exam: Normal Bowel Sounds, Soft. absent: Tenderness - Neurological Exam Neurological exam: Alert, Oriented x3 - Psychiatric Exam Psychiatric exam: Normal Affect, Normal Mood - Skin Skin Exam: Dry, Intact, Normal Color, Warm Discharge Plan - Follow Up Plan Condition: FAIR Disposition: AGAINST MEDICAL ADVICE Referrals: Justino Burrell MD [Primary Care Provider] - <Radha Crespo - Last Filed: 06/08/18 18:58> Provider - Provider Date of Admission: 06/06/18 02:16 Attending physician: Radha Crespo DO Primary care physician: Justino Burrell MD Hospital Course - Lab Results Lab Results: Micro Results 06/06/18 06:00 Blood Blood Culture - Preliminary NO GROWTH AFTER 48 HOURS Most Recent Lab Values WBC 15.7 10^3/ul (4.5-11.0) H D 06/07/18 10:00 RBC 4.08 10^6/uL (3.5-6.1) 06/07/18 10:00 Hgb 11.8 g/dL (14.0-18.0) L 06/07/18 10:00 Hct 34.4 % (42.0-52.0) L 06/07/18 10:00 MCV 84.3 fl (80.0-105.0) 06/07/18 10:00 MCH 28.9 pg (25.0-35.0) 06/07/18 10:00 MCHC 34.3 g/dl (31.0-37.0) 06/07/18 10:00 RDW 13.4 % (11.5-14.5) 06/07/18 10:00 Plt Count 250 10^3/uL (120.0-450.0) 06/07/18 10:00 MPV 9.7 fl (7.0-11.0) 06/07/18 10:00 Gran % 88.1 % (50.0-68.0) H 06/07/18 10:00 Lymph % (Auto) 7.1 % (22.0-35.0) L 06/07/18 10:00 [place] % (Auto) 4.8 % (1.0-6.0) 06/07/18 10:00 Eos % (Auto) 0.0 % (1.5-5.0) L 06/07/18 10:00 Baso % (Auto) 0.0 % (0.0-3.0) 06/07/18 10:00 Gran # 13.83 (1.4-6.5) H 06/07/18 10:00 Lymph # (Auto) 1.1 (1.2-3.4) L 06/07/18 10:00 [place] # (Auto) 0.8 (0.1-0.6) H 06/07/18 10:00 Eos # (Auto) 0.0 (0.0-0.7) 06/07/18 10:00 Baso # (Auto) 0.00 K/mm3 (0.0-2.0) 06/07/18 10:00 Sodium 145 mmol/L (132-148) 06/07/18 10:00 Potassium 3.5 mmol/L (3.6-5.0) L 06/07/18 10:00 Chloride 112 mmol/L (98-107) H 06/07/18 10:00 Carbon Dioxide 17 mmol/L (21-33) L 06/07/18 10:00 Anion Gap 19 (10-20) 06/07/18 10:00 BUN 17 mg/dL (7-21) 06/07/18 10:00 Creatinine 0.7 mg/dl (0.8-1.5) L 06/07/18 10:00 Est GFR ( Amer) > 60 06/07/18 10:00 Est GFR (Non-Af Amer) > 60 06/07/18 10:00 Random Glucose 185 mg/dL (70-110) H 06/07/18 10:00 Calcium 8.8 mg/dL (8.4-10.5) 06/07/18 10:00 Phosphorus 3.1 mg/dL (2.5-4.5) 06/07/18 10:00 Magnesium 2.3 mg/dL (1.7-2.2) H 06/07/18 10:00 Total Bilirubin 0.4 mg/dL (0.2-1.3) 06/07/18 10:00 AST 18 U/L (17-59) 06/07/18 10:00 ALT 20 U/L (7-56) 06/07/18 10:00 Alkaline Phosphatase 49 U/L (38-126) 06/07/18 10:00 Troponin I < 0.01 ng/mL 06/06/18 22:50 Total Protein 6.4 g/dL (5.8-8.3) 06/07/18 10:00 Albumin 3.4 g/dL (3.0-4.8) 06/07/18 10:00 Globulin 3.0 gm/dL 06/07/18 10:00 Albumin/Globulin Ratio 1.2 (1.1-1.8) 06/07/18 10:00 Procalcitonin 0.21 NG/ML (0.19-0.49) 06/06/18 13:30 Urine Color Yellow (YELLOW) 06/06/18 06:30 Urine Appearance Clear (CLEAR) 06/06/18 06:30 Urine pH 5.0 (4.7-8.0) 06/06/18 06:30 Ur Specific [place] 1.015 (1.005-1.035) 06/06/18 06:30 Urine Protein Negative mg/dL (<30 mg/dL) 06/06/18 06:30 Urine Glucose (UA) Negative mg/dL (NEGATIVE) 06/06/18 06:30 Urine Ketones Negative mg/dL (NEGATIVE) 06/06/18 06:30 Urine Blood Small (NEGATIVE) H 06/06/18 06:30 Urine Nitrate Negative (NEGATIVE) 06/06/18 06:30 Urine Bilirubin Negative (NEGATIVE) 06/06/18 06:30 Urine Urobilinogen 1.0 E.U./dL (<1 E.U./dL) H 06/06/18 06:30 Ur Leukocyte Esterase Negative [place]/uL (NEGATIVE) 06/06/18 06:30 Urine RBC 2 - 5 /hpf (0-2) 06/06/18 06:30 Urine WBC 0 - 2 /hpf (0-6) 06/06/18 06:30 Ur Epithelial Cells None /hpf (0-5) 06/06/18 06:30 Urine Bacteria Mod (NEG) 06/06/18 06:30 Attending/Attestation - Attestation I have personally seen and examined this patient.: Yes I have fully participated in the care of the patient.: Yes I have reviewed all pertinent clinical information, including history, physical exam and plan: Yes Notes (Text): Patient seen and examined by me with resident at 9:50AM 06/07/18. Case discussed with resident. Agree with above with following additions/corrections. Patient is a 62 year old male with past medical history significant for BPH, asthma, and CAD that presented to the emergency room with generalized weakness, fever, cough, shortness of breath and diaphoresis. Please see H&P for full details. Patient was admitted with sepsis likely secondary to pneumonia, history of asthma, history of BPH, and history of CAD. Patient was started on rocephin and zithromax. Patient was started on IV fluids. Chest CT per radiologist showed ground glass interstitial infiltrates seen in the lingular segment of the left lung and a small area of the right upper lobe, findings are consistent with an interstitial pneumonia. Patient did have fevers. ID was consulted. Patient was also placed on nebulizer treatments and steroids for likely COPD exacerbation. Patient was counseled on smoking cessation. Patient was advised to follow up with a retort furnace operator for outpatient PFTS. Blood cultures, sputum cultures were pending. Further treatment was pending when patient decided to sign out AMA. Patient denied any chest pain. Shortness of breath and cough improved. No nausea or vomiting. No abdominal pain. No fevers or chills day of signing out AMA. No headaches or dizziness. No dysuria. No diarrhea or constipation. Patient requested to sign out against medical advice. This action is against my medical advice to the patient and the decision was made with informed refusal. The patient was told that further workup is necessary and a full explanation of the rationale was given. The risks of leaving were explained to the patient and include but are not limited to increased morbidity and mortality, , and worsening of known or unknown conditions. Patient was AAO 3 was able to make this informed decision and understands the clinical situation and my explanation of the risks of leaving. Patient voluntarily accepts these risks and signed an AMA form. The patient was given a chance to ask questions and reconsider. Patient was encouraged to return to emergency room at any time for further care. Patient was given prescriptions prior to his leaving. Physical exam: General: Awake and alert, lying in bed in no acute distress HEENT: Normocephalic, atraumatic. Pupils equal and reactive. Extraocular muscles intact. No scleral icterus. Oropharynx is pink and moist. No pharyngeal erythema or exudate appreciated Neck is supple. Cardiovascular: Normal rhythm. Normal S1, S2. No murmurs, rubs, or gallops appreciated Pulmonary: Normal respiratory effort. Decreased breath sounds. Coarse breath sounds. No rales or wheezing appreciated. Gastrointestinal: Soft, Nontender. nondistended. Positive bowel sounds all 4 quadrants, no guarding. Musculoskeletal: Normal range of motion all extremities, no calf tenderness, no edema appreciated. Central nervous system: CN2-12 grossly intact. AAO x 3 Dermatologic: Skin warm and dry Please see chart for full details.
== END 2018-06-07 12:54 | disposition left against medical advice (07) ==
LOC: ED 22:30 → ERH 06-06 02:16 → 3RSO 06-06 03:37
PROVIDERS: ADMIT Hospitalist; ATTEND Hospitalist
DX: J18.9 Pneumonia, unspecified organism (principal); J44.0 Chronic obstructive pulmonary disease with (acute) lower respiratory infection; J84.9 Interstitial pulmonary disease, unspecified; E78.5 Hyperlipidemia, unspecified; I25.10 Atherosclerotic heart disease of native coronary artery without angina pectoris; K21.9 Gastro-esophageal reflux disease without esophagitis; N40.0 Benign prostatic hyperplasia without lower urinary tract symptoms; Z87.891 Personal history of nicotine dependence